=== PATIENT | male | born 1955 | race Caucasian/White ===

== ENCOUNTER 2021-02-28 07:31 | Outpatient (CLI) | payer MEDICARE, OTHER | END 2021-02-28 07:32 | disposition home or self-care (01) | LOC: BICCT 07:31 | PROVIDERS: ATTEND Family Medicine | DX: Z12.2 Encounter for screening for malignant neoplasm of respiratory organs (principal); F17.210 Nicotine dependence, cigarettes, uncomplicated; J43.9 Emphysema, unspecified; J84.89 Other specified interstitial pulmonary diseases | CPT/HCPCS: 71271 ==

== ENCOUNTER 2023-04-30 11:26 | Outpatient (CLI) | payer MEDICARE, OTHER | END 2023-04-30 11:27 | disposition home or self-care (01) | LOC: BICCT 11:26 | PROVIDERS: ATTEND Family Medicine | DX: Z12.2 Encounter for screening for malignant neoplasm of respiratory organs (principal); Z71.6 Tobacco abuse counseling; F17.210 Nicotine dependence, cigarettes, uncomplicated; J98.2 Interstitial emphysema | CPT/HCPCS: 71271 ==

== ENCOUNTER → 2024-04-30 | Outpatient (CLI) | payer MEDICARE, OTHER | LOC: BICCT 10:24 | PROVIDERS: ATTEND Family Medicine | DX: Z12.2 Encounter for screening for malignant neoplasm of respiratory organs (principal); F17.210 Nicotine dependence, cigarettes, uncomplicated; R59.0 Localized enlarged lymph nodes; J84.10 Pulmonary fibrosis, unspecified; J43.9 Emphysema, unspecified | CPT/HCPCS: 71271 ==

== ENCOUNTER 2024-12-23 20:00 | Emergency (ER) | payer MEDICARE, OTHER ==
[2024-12-23 20:55] LABS: ALT (SGPT) 12 U/L (Less than 45); AST (SGOT) 23 U/L (11-34); Albumin 3.7 g/dL (3.1-4.5); Alkaline Phosphatase 70 U/L (40-110); Anion Gap 14 mmol/L (10-20); BUN (Urea Nitrogen) 7 mg/dL (8.4-25.7); Bilirubin, Total 0.2 mg/dL (0.3-1.2); Calc. Creatinine Clearance 0 mL/min (70-130); Calcium 8.4 mg/dL (7.8-10.44); Carbon Dioxide 21 mmol/L (23-31); Chloride 104 mmol/L (98-107); Globulin 2.9 g/dL (2.4-3.5); Glucose 92 mg/dL (80-115); Potassium 3.6 mmol/L (3.5-5.1); Sodium 135 mmol/L (136-145)
[2024-12-23 20:56] LABS: INR-International Normal Ratio 1.1; PTT 30.1 sec (22.9-36.1); Prothrombin Time 14.7 sec (12.0-14.7)
[2024-12-23 20:59] LABS: Hematocrit 31.5 % (42.0-52.0); Hemoglobin 9.4 g/dL (14.0-18.0); Mean Corpuscular Hemoglobin 25.1 pg (27.0-31.0); Mean Corpuscular Volume 84.0 fL (78.0-98.0); Platelet Count 426 10x3/uL (130-400); Red Blood Cell (RBC) Count 3.75 mill/uL (4.70-6.10); White Blood Cell (WBC) Count 4.99 10x3/uL (4.8-10.8)
[2024-12-23 21:00] LABS: Troponin I 0.011 ng/mL (< 0.028)
[2024-12-23 21:01] LABS: #Basophils 0.05 10x3/uL (0.0-0.2); #Eosinophils 0.14 10x3/uL (0.0-0.7); #Monocytes 0.71 10x3/uL (0.11-0.59); #Neutrophils 2.54 10x3/uL (1.40-6.50); %Basophils 0.9 % (0.0-1.0); %Eosinophils 2.6 % (0.0-10.0); %Lymphocytes 35.9 % (21.0-51.0); %Monocytes 13.1 % (0.0-10.0); %Neutrophils 47.1 % (42.0-75.0)
== END 2024-12-23 22:50 | disposition home or self-care (01) ==
LOC: ERS 20:00
DX: E86.0 Dehydration (principal); I95.9 Hypotension, unspecified; Z79.82 Long term (current) use of aspirin; Z79.899 Other long term (current) drug therapy; Z98.890 Other specified postprocedural states
CPT/HCPCS: 36416; 71045; 80053; 80307; 84484; 85025; 85610; 85730; 93005; 96360; 96361

== ENCOUNTER 2025-02-17 15:01 | Emergency (ER) | payer MEDICARE, OTHER ==
[~2025-02-17 15:01] MED LIST: Iopamidol-370 76% 500 ML MDV (1 ML CHARGE) ONE
[2025-02-17 15:48] LABS: #Basophils Less than 0.03 10x3/uL (0.0-0.2); #Eosinophils 0.09 10x3/uL (0.0-0.7); #Monocytes 0.57 10x3/uL (0.11-0.59); #Neutrophils 3.29 10x3/uL (1.40-6.50); %Basophils 0.2 % (0.0-1.0); %Eosinophils 1.8 % (0.0-10.0); %Lymphocytes 22.0 % (21.0-51.0); %Monocytes 11.2 % (0.0-10.0); %Neutrophils 64.4 % (42.0-75.0); Hematocrit 18.2 % (42.0-52.0); Hemoglobin 5.3 g/dL (14.0-18.0); Mean Corpuscular Hemoglobin 23.1 pg (27.0-31.0); Mean Corpuscular Volume 79.5 fL (78.0-98.0); Platelet Count 348 10x3/uL (130-400); Red Blood Cell (RBC) Count 2.29 mill/uL (4.70-6.10); White Blood Cell (WBC) Count 5.10 10x3/uL (4.8-10.8)
[2025-02-17 16:01] LABS: ALT (SGPT) 15 U/L (Less than 45); AST (SGOT) 22 U/L (11-34); Albumin 3.4 g/dL (3.1-4.5); Alkaline Phosphatase 67 U/L (40-110); Anion Gap 16 mmol/L (10-20); BUN (Urea Nitrogen) 18 mg/dL (8.4-25.7); Bilirubin, Total 0.2 mg/dL (0.3-1.2); CK (CPK) 70 U/L (30-200); Calc. Creatinine Clearance 0 mL/min (70-130); Calcium 8.5 mg/dL (7.8-10.44); Carbon Dioxide 20 mmol/L (23-31); Chloride 109 mmol/L (98-107); Globulin 2.3 g/dL (2.4-3.5); Glucose 105 mg/dL (80-115); Lipase 52 U/L (8-78); Potassium 3.7 mmol/L (3.5-5.1); Sodium 141 mmol/L (136-145)
== END 2025-02-17 21:45 | disposition home or self-care (01) ==
LOC: ERS 15:01
DX: D64.9 Anemia, unspecified (principal); I10 Essential (primary) hypertension; J44.9 Chronic obstructive pulmonary disease, unspecified; E78.5 Hyperlipidemia, unspecified; Z79.82 Long term (current) use of aspirin; Z79.899 Other long term (current) drug therapy; Z86.73 Personal history of transient ischemic attack (TIA), and cerebral infarction without residual deficits; Z87.891 Personal history of nicotine dependence
CPT/HCPCS: 36430; 71045; 71275; 82550; 83605; 83690; 83880; 84484; 86850; 86900; 86901; 86920; 87040; 93005; 99285; P9016; Q9967; 36415; 80053; 84443; 85025

== ENCOUNTER 2025-03-02 07:24 | Day surgery (SDC) | payer MEDICARE, OTHER ==
[2025-02-27 09:53] VITALS: BMI 25.7
[2025-03-02 09:27] LABS: Hematocrit 34.4 % (42.0-52.0); Hemoglobin 10.4 g/dL (14.0-18.0); Platelet Count 378 10x3/uL (130-400)
[2025-03-02] MEDS ORDERED: PROPOFOL 20 ML ONE ×2 (09:33→10:16)
[2025-03-02] MEDS ORDERED: GLYCOPYRROLATE/PF 0.2 MG/ML VIAL ONE (09:33)
[2025-03-02] MEDS ORDERED: Lidocaine 1% PF 5 ML VIAL ONE (10:09)
[2025-03-02] MEDS ORDERED: PHENYLEPHRINE-NS 100 MCG/ML 10 ML SYRINGE ONE (10:21)
== END 2025-03-02 11:57 | disposition home or self-care (01) ==
LOC: SDC 07:24
PROVIDERS: ATTEND Internal Medicine Gastroenterology
DX: D12.0 Benign neoplasm of cecum (principal); D50.9 Iron deficiency anemia, unspecified; D62 Acute posthemorrhagic anemia; I10 Essential (primary) hypertension; E78.00 Pure hypercholesterolemia, unspecified; F17.210 Nicotine dependence, cigarettes, uncomplicated; Z86.0100 Personal history of colon polyps, unspecified; Z86.73 Personal history of transient ischemic attack (TIA), and cerebral infarction without residual deficits; Z98.890 Other specified postprocedural states; Z79.82 Long term (current) use of aspirin; Z79.899 Other long term (current) drug therapy
CPT/HCPCS: 44366; 45385; 85014; 85018; 85049; 86850; 86900; 86901; 86920; J2704; J3490; 36415; 88305